=== PATIENT | female | born 1970 | race Two or more races ===

== ENCOUNTER → 2018-01-11 | Outpatient (CLI) | payer MEDICAID | LOC: BRMIMAGING 11:01 | PROVIDERS: ATTEND Registered Nurse | DX: N85.8 Other specified noninflammatory disorders of uterus (principal); N83.201 Unspecified ovarian cyst, right side; N83.202 Unspecified ovarian cyst, left side | CPT/HCPCS: 76856-PO ==

== ENCOUNTER → 2018-03-28 | Outpatient (CLI) | payer MEDICAID | LOC: BRMIMAGING 10:42 | PROVIDERS: ATTEND Registered Nurse | DX: Z12.31 Encounter for screening mammogram for malignant neoplasm of breast (principal) ==

== ENCOUNTER → 2018-04-18 | Outpatient (CLI) | payer MEDICAID | LOC: BRMIMAGING 09:59 | PROVIDERS: ATTEND Registered Nurse | DX: R92.8 Other abnormal and inconclusive findings on diagnostic imaging of breast (principal) ==

== ENCOUNTER → 2019-03-31 | Outpatient (CLI) | payer MEDICAID | LOC: BRMIMAGING 10:56 ==